=== PATIENT | female | born 1980 | race Two or more races ===

== ENCOUNTER 2020-07-20 19:24 | Emergency (ER) | payer OTHER ==
[~2020-07-20] VITALS: Ht 157.5 cm; Wt 72.6 kg
--- OUTSIDE RECORDS SUMMARY | 2020-07-20 19:28 | XMS ---
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 Guidelines Source: [employer] [facility] [place] Guidelines Date: 10/10/2019 Care Coordination: Member is currently not engaged in [employer] services. If Mental Health services are needed, please contact: [place] [phone] [place]/ [place] [phone] [facility] Line [phone] E.D. VISIT COUNT (12 MO.) 1 [facility] TOTAL 1 NOTE: Visits indicate total known visits. ED/UCC VISIT TRACKING (12 MO.) 07/20/2020 19:[address] [facility] [place] TYPE: Emergency COMPLAINT: - HEAD ISSUES INPATIENT VISIT TRACKING (12 MO.) No inpatient visits to display in this time frame [email or web address]
== END 2020-07-20 22:44 | disposition home or self-care (01) ==
LOC: ED 19:24
DX: F22 Delusional disorders (principal); F15.10 Other stimulant abuse, uncomplicated; F17.200 Nicotine dependence, unspecified, uncomplicated
CPT/HCPCS: 80053; 80176; 81001; 84443; 84703; 85025; 99285

== ENCOUNTER 2020-08-07 22:33 | Emergency (ER) | payer MEDICARE, OTHER ==
[~2020-08-07] VITALS: Ht 157.5 cm; Wt 72.6 kg
--- OUTSIDE RECORDS SUMMARY | 2020-08-07 22:38 | XMS ---
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 Guidelines Source: [employer] [facility] [place] Guidelines Date: 10/10/2019 Care Coordination: Member is currently not engaged in [employer] services. If Mental Health services are needed, please contact: [place] [phone] [place]/ [place] [phone] Crisis Line [phone] Care History Medical/Surgical 07/24/2020 [facility] CONTACTED FOR PATIENT ED VISIT 07/20/2020. E.D. VISIT COUNT (12 MO.) 2 [facility]. TOTAL 2 NOTE: Visits indicate total known visits. ED/UCC VISIT TRACKING (12 MO.) 08/07/2020 22:34 [facility] [place] TYPE: Emergency COMPLAINT: - MULTIPLE COMPLAINTS 07/20/2020 19:26 [facility] [place] TYPE: Emergency COMPLAINT: - HEAD ISSUES DIAGNOSES: - Delusional disorders - Other stimulant abuse, uncomplicated - Nicotine dependence, unspecified, uncomplicated - Auditory hallucinations INPATIENT VISIT TRACKING (12 MO.) No inpatient visits to display in this time frame [id number]
[2020-08-08] MEDS ORDERED: HYDROCODON-ACE1 EA10 PO (00:58)
[2020-08-08] MEDS ORDERED: CRUTCH1 EACH MISC (01:00)
== END 2020-08-08 05:40 | disposition home or self-care (01) ==
LOC: ED 22:33
DX: S82.842A Displaced bimalleolar fracture of left lower leg, initial encounter for closed fracture (principal); X58.XXXA Exposure to other specified factors, initial encounter; R45.1 Restlessness and agitation; F17.200 Nicotine dependence, unspecified, uncomplicated
CPT/HCPCS: 70450; 71260; 72125; 73590; 73610; 73620; 73630; 74177; 80053; 81001; 82150; 82550; 83690; 85025; 86850; 86900; 86901; 99285-25; J2060; Q9967

== ENCOUNTER 2020-08-15 18:25 | Emergency (ER) | payer OTHER, MEDICARE ==
[~2020-08-15] VITALS: Ht 157.5 cm; Wt 63.5 kg
[~2020-08-15 18:25] MED LIST: CRUTCH1 EACH MISC; HYDROCODON-ACE1 EA10 PO
--- OUTSIDE RECORDS SUMMARY | 2020-08-15 18:30 | XMS ---
PreManage Notification: DIONICIO ELLIOTT Security Venue Manager Events No recent Security Events currently on file CRITERIA MET - [facility] [place] - Has Care Guidelines - [facility] - 2 Visits in 30 Days CARE PROVIDERS There are no care providers on record at this time. Guidelines Source: [employer] [facility] [place] Guidelines Date: 10/10/2019 Care Coordination: Member is currently not engaged in [employer] services. If Mental Health services are needed, please contact: [place] [phone] [place]/ [place] [phone] Crisis Line [phone] Care History Medical/Surgical 07/24/2020 [facility] CONTACTED FOR PATIENT ED VISIT 07/20/2020. E.D. VISIT COUNT (12 MO.) [address] [facility]. TOTAL 4 NOTE: Visits indicate total known visits. ED/UCC VISIT TRACKING (12 MO.) 08/15/2020 18:26 [facility] [place] TYPE: Emergency COMPLAINT: - VOMITING, LT LEG PAIN 08/10/2020 17:27 [facility] [place] TYPE: Emergency COMPLAINT: - LEG IS HURTING 08/07/2020 22:34 [facility] [place] TYPE: Emergency COMPLAINT: - MULTIPLE COMPLAINTS DIAGNOSES: - Exposure to other specified factors, initial encounter - Nicotine dependence, unspecified, uncomplicated - Restlessness and agitation - Displaced bimalleolar fracture of left lower leg, initial encounter for closed fracture 07/20/2020 19:26 [facility] [place] TYPE: Emergency COMPLAINT: - HEAD ISSUES DIAGNOSES: - Delusional disorders - Other stimulant abuse, uncomplicated - Nicotine dependence, unspecified, uncomplicated - Auditory hallucinations INPATIENT VISIT TRACKING (12 MO.) No inpatient visits to display in this time frame [email or web address]
[2020-08-15] MEDS ORDERED: HYDROXYZINE HCL25 MG PO (19:19)
[2020-08-15] MEDS ORDERED: OLANZAPINE20 MG PO (19:19)
[2020-08-15] MEDS ORDERED: HYDROCODON-ACE1 EA10 PO (20:49)
== END 2020-08-15 21:00 | disposition home or self-care (01) ==
LOC: ED 18:25
DX: S82.842A Displaced bimalleolar fracture of left lower leg, initial encounter for closed fracture (principal); V03.90XA Pedestrian on foot injured in collision with car, pick-up truck or van, unspecified whether traffic or nontraffic accident, initial encounter; F17.200 Nicotine dependence, unspecified, uncomplicated; Z79.899 Other long term (current) drug therapy
CPT/HCPCS: 73610; 96374; 96375; 99283-25; J2405; J3010